=== PATIENT | female | born 1985 | race Hispanic/Latino ===

== ENCOUNTER 2016-06-06 14:38 | Emergency (ER) | payer SELFPAY ==
[2016-06-06 15:20] VITALS: BP 132/76
[2016-06-07] MEDS ORDERED: MOTRIN PO ONE
--- NOTE | 2016-06-07 | Emergency Department Report ---
HPI - General Chief Complaint: Upper Respiratory Infection Time Seen by Provider: 06/06/16 23:59 ED Review of Systems ROS: Stated complaint: FEVER/COUGH/BODY ACHES Other details as noted in HPI Constitutional: denies: weakness Physical Exam - Physical Exam Vital Signs: Vital Signs 06/06/16 15:18 Temperature 99.6 F Pulse Rate 85 Respiratory 20 Rate Blood Pressure 132/76 O2 Sat by Pulse 99 Oximetry ED Course Vital Signs 06/06/16 15:18 Temperature 99.6 F Pulse Rate 85 Respiratory 20 Rate Blood Pressure 132/76 O2 Sat by Pulse 99 Oximetry Critical care attestation.: If time is entered above; I have spent that time in minutes in the direct care of this critically ill patient, excluding procedure time. ED Disposition Condition: Stable
== END 2016-06-07 | disposition left against medical advice (07) ==
LOC: ED 14:38
DX: R50.9 Fever, unspecified (principal); R05 Cough; M79.1 Myalgia; R11.10 Vomiting, unspecified; Z53.21 Procedure and treatment not carried out due to patient leaving prior to being seen by health care provider